=== PATIENT | male | born 1955 | race Hispanic/Latino ===

== ENCOUNTER 2020-03-09 10:56 | Inpatient (IN) | payer BC, OTHER ==
[2020-03-09] VITALS (11 sets, daily range): BP systolic 105–128; BP diastolic 68–75
[~2020-03-09] VITALS: Ht 170.2 cm; Wt 67.6 kg
[2020-03-09 11:23] LABS: BASOPHILS % (AUTO) 0.3 % (0.0-5.0); EOSINOPHILS % (AUTO) 1.4 % (0.0-8.0); HEMATOCRIT 49.1 % (42-54); LYMPHOCYTES % (AUTO) 6.5 % (21.0-51.0); MEAN CORPUSCULAR HEMOGLOBIN 27.7 pg (27.0-33.0); MEAN CORPUSCULAR HGB CONC 33.4 g/dL (32.0-36.0); MEAN CORPUSCULAR VOLUME 82.8 fL (79-99); MONOCYTES % (AUTO) 7.9 % (3.0-13.0); NEUTROPHILS % (AUTO) 83.6 % (40.0-77.0); PLATELET COUNT (AUTO) 195 K/uL (130-400); RED BLOOD CELL COUNT(AUTO) 5.93 MIL/uL (4.50-6.20); RED CELL DISTRIBUTION WIDTH 12.7 % (11.0-15.5); WHITE BLOOD COUNT (AUTO) 9.3 K/uL (4.8-10.8)
[2020-03-09 11:40] LABS: CREATININE 1.5 mg/dL (0.5-1.5); POTASSIUM 3.8 mmol/L (3.5-5.1)
[2020-03-09] MEDS ORDERED: ONDANSETRON HCL 4 MG/2 ML VIAL ONE ×2 (11:40→15:31)
[2020-03-09] MEDS ORDERED: KETOROLAC TROMETHAMINE 30MG/ML ONE (11:40)
[2020-03-09 11:43] LABS: ALBUMIN 3.5 g/dL (3.5-5.0); BILIRUBIN,TOTAL 1.9 mg/dL (0.2-1.0); TOTAL PROTEIN, SERUM 7.6 g/dL (6.0-8.3)
[2020-03-09] MEDS ORDERED: SODIUM CHLORIDE 0.9% 1000ML 1,000 ML IV ONE (13:27)
[2020-03-09] MEDS ORDERED: ZOSYN 3.375GM+NS 50ML 50 ML IV ONE (13:27)
[2020-03-09 14:06] LABS: APPEARANCE,URINE SL CLOUDY (CLEAR); BILIRUBIN,URINE SMALL (NEGATIVE); COLOR,URINE ORANGE (YELLOW); GLUCOSE, URINE (UA) NEGATIVE (NEGATIVE); KETONES,URINE 5 mg/dL (NEGATIVE); LEUKOCYTE ESTERASE ,URINE NEGATIVE (NEGATIVE); NITRATE,URINE NEGATIVE (NEGATIVE); OCCULT BLOOD,URINE NEGATIVE (NEGATIVE); PH,URINE 5.5 (5.0-8.0); PROTEIN,URINE 30 mg/dL (NEGATIVE)
[2020-03-09 14:20] LABS: BACTERIA,URINE Rare /HPF (None Seen); MUCUS,URINE Moderate LPF (None Seen); RBC,URINE 0-1 /HPF (0-1); SQUAMOUS EPITHELIAL CELL,UR Rare /HPF (0-2)
[2020-03-09] MEDS ORDERED: ZOSYN 3.375GM +NS 50ML IV SCH (15:00)
[2020-03-09] MEDS ORDERED: ACETAMINOPHEN 650 MG SUPPOSITORY RC PRN (15:00)
[2020-03-09] MEDS ORDERED: LACTATED RINGERS 1000ML 1,000 ML IV SCH (15:00)
[2020-03-09] MEDS ORDERED: HYDRALAZINE HCL 20 MG/ML VIAL IV PRN (15:00)
[2020-03-09] MEDS ORDERED: NOREPINEPHRINE 4MG/NS 250ML 250 ML IV PRN (15:00)
[2020-03-09] MEDS ORDERED: ONDANSETRON HCL 4 MG/2 ML VIAL IVP PRN (15:00)
[2020-03-09] MEDS ORDERED: ALBUTEROL INHALER 90MCG/INH IH PRN (15:00)
[2020-03-09] MEDS ORDERED: HYDROMORPHONE 1 MG/1 ML AMP IVP PRN (15:00)
[2020-03-09] MEDS ORDERED: SUCCINYLCHOLINE CHLORIDE 20 MG/ML 10 ML VIAL ONE (15:30)
[2020-03-09] MEDS ORDERED: LIDOCAINE PF 2% 5ML ABBOJECT ONE (15:30)
[2020-03-09] MEDS ORDERED: HYDROMORPHONE HCL 0.5 MG/0.5 ML ML IVP PRN (15:30)
[2020-03-09] MEDS ORDERED: PROPOFOL 10 MG/ML 20ML VIAL IV ONE (15:31)
[2020-03-09] MEDS ORDERED: ROCURONIUM 10MG/1ML SYR 10 MG/ML ML ONE (15:31)
[2020-03-09] MEDS ORDERED: MIDAZOLAM HCL 1 MG/ML 2ML VIAL ONE (15:31)
[2020-03-09] MEDS ORDERED: FENTANYL CITRATE PF 50 MCG/1 ML 2ML VIAL ONE (15:32)
[2020-03-09] MEDS ORDERED: EPHEDRINE SULFATE 50 MG/ML AMPULE ONE (15:42)
[2020-03-09] MEDS ORDERED: ZOSYN 3.375GM+NS 50ML 50 ML IV SCH ×2 (16:00→21:00)
[2020-03-09] MEDS ORDERED: BUPIVACAINE/PF 0.5% 30ML VIAL ONE (16:12)
[2020-03-09] MEDS ORDERED: NEOSTIGMINE 5MG/5ML SYR IV ONE (16:17)
[2020-03-09] MEDS ORDERED: GLYCOPYRROLATE 1 MG/5 ML SYRINGE ONE (16:17)
[2020-03-09] MEDS ORDERED: MORPHINE SULFATE 4 MG/1ML SYG IV PRN (16:30)
[2020-03-09] MEDS ORDERED: MORPHINE SULFATE 2 MG/ML 1ML SYG IV PRN (16:30)
[2020-03-09] MEDS ORDERED: HYDROCODONE/ACETAMINOPHEN 5/325 MG TAB PO PRN (16:30)
[2020-03-09] MEDS: LACTATED RINGERS 1000ML 1,000 ML IV SCH (16:42)
[2020-03-09] MEDS: FLUCONAZOLE 400 MG/NS 200 ML 200 ML IV SCH (22:04)
[2020-03-09 22:18] LABS: CREATINE KINASE, TOTAL 63 U/L (21-232); MYOGLOBIN 132 ng/mL (10-92); TROPONIN I < 0.04 ng/mL (0.00-0.06)
[2020-03-10] MEDS: LACTATED RINGERS 1000ML 1,000 ML IV SCH ×4 (00:06→16:49)
[2020-03-10] MEDS: ZOSYN 3.375GM+NS 50ML 50 ML IV SCH ×4 (00:06→21:07)
[2020-03-10 00:07] VITALS: BP 93/58
[2020-03-10 03:34] LABS: BASOPHILS % (AUTO) 0.3 % (0.0-5.0); EOSINOPHILS % (AUTO) 2.2 % (0.0-8.0); HEMATOCRIT 41.8 % (42-54); LYMPHOCYTES % (AUTO) 5.9 % (21.0-51.0); MEAN CORPUSCULAR HEMOGLOBIN 27.6 pg (27.0-33.0); MEAN CORPUSCULAR HGB CONC 33.3 g/dL (32.0-36.0); MEAN CORPUSCULAR VOLUME 83.1 fL (79-99); MONOCYTES % (AUTO) 3.9 % (3.0-13.0); NEUTROPHILS % (AUTO) 87.3 % (40.0-77.0); PLATELET COUNT (AUTO) 193 K/uL (130-400); RED BLOOD CELL COUNT(AUTO) 5.03 MIL/uL (4.50-6.20); RED CELL DISTRIBUTION WIDTH 13.2 % (11.0-15.5)
[2020-03-10 03:47] VITALS: BP 91/64
[2020-03-10 03:55] LABS: CARBON DIOXIDE 24 mmol/L (21-32); CHLORIDE 105 mmol/L (101-111); CREATINE KINASE, TOTAL 68 U/L (21-232); CREATININE 1.7 mg/dL (0.5-1.5); GLOMERULAR FILTR. RATE CALC 43 mL/min (>60); GLUCOSE,RANDOM 165 mg/dL (70-105); MYOGLOBIN 123 ng/mL (10-92); PHOSPHORUS 2.3 mg/dL (2.5-4.9); POTASSIUM 3.9 mmol/L (3.5-5.1); SODIUM SERUM 138 mmol/L (136-145); TROPONIN I < 0.04 ng/mL (0.00-0.06); UREA NITROGEN, BLOOD 18 mg/dL (7-18)
[2020-03-10] MEDS ORDERED: MAGNESIUM 2GM PREMIX 50ML 50 ML IV PRN (08:15)
[2020-03-10] MEDS ORDERED: POTASSIUM CHLORIDE 10MEQ/100ML 100 ML IV PRN (08:15)
[2020-03-10] MEDS ORDERED: LIDOCAINE HCL-MPF 1% 2ML VIAL IV PRN (08:15)
[2020-03-10] MEDS ORDERED: FLUCONAZOLE 400 MG/NS 200 ML IV SCH (09:00)
[2020-03-10] MEDS ORDERED: FLUCONAZOLE 400 MG/NS 200 ML 200 ML IV SCH (09:00)
[2020-03-10] MEDS: FLUCONAZOLE 400 MG/NS 200 ML 200 ML IV SCH (09:44)
[2020-03-10 09:50] VITALS: BP 92/56
[2020-03-10 11:00] VITALS: BP 99/60
[2020-03-10 16:42] VITALS: BP 122/75
[2020-03-10 20:00] VITALS: BP 113/72
[2020-03-11] VITALS (7 sets, daily range): BP systolic 101–154; BP diastolic 66–92
[2020-03-11 05:22] LABS: HEMATOCRIT 37.4 % (42-54); MEAN CORPUSCULAR HEMOGLOBIN 27.5 pg (27.0-33.0); MEAN CORPUSCULAR HGB CONC 32.6 g/dL (32.0-36.0); MEAN CORPUSCULAR VOLUME 84.2 fL (79-99); RED BLOOD CELL COUNT(AUTO) 4.44 MIL/uL (4.50-6.20); RED CELL DISTRIBUTION WIDTH 13.5 % (11.0-15.5); WHITE BLOOD COUNT (AUTO) 9.9 K/uL (4.8-10.8)
[2020-03-11] MEDS: ZOSYN 3.375GM+NS 50ML 50 ML IV SCH ×3 (05:40→21:11)
[2020-03-11] MEDS: LACTATED RINGERS 1000ML 1,000 ML IV SCH ×2 (05:41→21:10)
[2020-03-11 05:44] LABS: CREATININE 1.2 mg/dL (0.5-1.5); MAGNESIUM 2.3 mg/dL (1.80-2.40); POTASSIUM 4.6 mmol/L (3.5-5.1)
--- NOTE | 2020-03-11 08:00 | NUR ---
INTEGUMENTARY PT HAS 2 MIDLINE INCISION WITH ANNITA DRAIN, AND ONE INCISION TO THE LEFT TOTAL OF 3 INCISIONS, DRESSING DRY AND INTACT.
[2020-03-11] MEDS: FLUCONAZOLE 400 MG/NS 200 ML 200 ML IV SCH (09:10)
--- NOTE | 2020-03-11 17:36 | NUR ---
DC PLAN VISITED WITH PATIENT. PATIENT LIVES WITH SPOUSE. INDEPENDENT ABLE TO PERFORM ADL'S. PATIENT HAS NO SERVICES OR DME'S. FEELS SAFE TO RETURN HOME. Addendum: 03/11/20 at 1737 by CHANEL GRANT RN CM Amended: Links added.
[2020-03-12 04:01] VITALS: BP 116/67
[2020-03-12] MEDS: ZOSYN 3.375GM+NS 50ML 50 ML IV SCH ×3 (05:24→21:05)
[2020-03-12 05:51] LABS: HEMATOCRIT 41.1 % (42-54); MEAN CORPUSCULAR HEMOGLOBIN 27.3 pg (27.0-33.0); MEAN CORPUSCULAR HGB CONC 32.1 g/dL (32.0-36.0); MEAN CORPUSCULAR VOLUME 84.9 fL (79-99); RED BLOOD CELL COUNT(AUTO) 4.84 MIL/uL (4.50-6.20); RED CELL DISTRIBUTION WIDTH 13.8 % (11.0-15.5); WHITE BLOOD COUNT (AUTO) 9.5 K/uL (4.8-10.8)
[2020-03-12 06:13] LABS: CREATININE 1.2 mg/dL (0.5-1.5); POTASSIUM 4.1 mmol/L (3.5-5.1)
[2020-03-12 08:48] VITALS: BP 134/74
[2020-03-12] MEDS: FLUCONAZOLE 400 MG/NS 200 ML 200 ML IV SCH (08:49)
[2020-03-12 12:00] VITALS: BP 162/92
[2020-03-12] MEDS: LACTATED RINGERS 1000ML 1,000 ML IV SCH (14:51)
[2020-03-12 16:40] VITALS: BP 158/99
--- NOTE | 2020-03-12 19:09 | NUR ---
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 WILL CONTINUE TO MONITOR LR AT [facility].
[2020-03-12 19:48] VITALS: BP 139/80
[2020-03-12] MEDS ORDERED: ASPI-1443 PO (20:30)
[2020-03-12] MEDS ORDERED: LOSA25TA41 PO (20:30)
[2020-03-12] MEDS ORDERED: METO-408 PO (20:30)
[2020-03-12] MEDS ORDERED: ATOR40TA71 PO (20:30)
--- NOTE | 2020-03-12 20:35 | NUR ---
Had patient's take the medication at patient's bedside table that he was taking while here. Informed him that I would call the doctor and get orders for them to be resumed. Patient and verbalized understanding. Esvin CHANG paged via answering service, answered within a few seconds, informed of patient taking his own medication since he has been here. Informed her had already updated his medication on the computer. Orders to resume the medication from home.
[2020-03-12] MEDS: ATORVASTATIN CALCIUM 40 MG TABLET PO SCH (21:04)
[2020-03-12 23:59] VITALS: BP 109/69
[2020-03-13 03:50] VITALS: BP 112/72
[2020-03-13] MEDS: ZOSYN 3.375GM+NS 50ML 50 ML IV SCH ×3 (05:05→21:15)
[2020-03-13 05:52] LABS: HEMATOCRIT 40.1 % (42-54); MEAN CORPUSCULAR HEMOGLOBIN 27.3 pg (27.0-33.0); MEAN CORPUSCULAR HGB CONC 32.4 g/dL (32.0-36.0); MEAN CORPUSCULAR VOLUME 84.1 fL (79-99); RED BLOOD CELL COUNT(AUTO) 4.77 MIL/uL (4.50-6.20); RED CELL DISTRIBUTION WIDTH 13.6 % (11.0-15.5); WHITE BLOOD COUNT (AUTO) 8.7 K/uL (4.8-10.8)
[2020-03-13 06:13] LABS: CREATININE 1.3 mg/dL (0.5-1.5); POTASSIUM 3.4 mmol/L (3.5-5.1)
[2020-03-13 08:03] VITALS: BP 124/79
[2020-03-13] MEDS ORDERED: NON-FORMULARY MEDICATION 1 EACH (Losartan Potassium 25 MG) PO SCH (09:00)
[2020-03-13] MEDS ORDERED: NON-FORMULARY MEDICATION 1 EACH (Metoprolol Succinate 25 MG) PO SCH (09:00)
[2020-03-13] MEDS: METOPROLOL SUCCINATE 50 MG TAB.SR.24H PO SCH (11:25)
[2020-03-13] MEDS: FLUCONAZOLE 400 MG/NS 200 ML 200 ML IV SCH (11:25)
[2020-03-13] MEDS: LOSARTAN 50 MG TABLET PO SCH (11:25)
[2020-03-13] MEDS: ASPIRIN 81 MG EC TAB PO SCH (11:25)
[2020-03-13 11:43] VITALS: BP 131/91
[2020-03-13 16:00] VITALS: BP 140/88
[2020-03-13 20:47] VITALS: BP 125/82
[2020-03-13] MEDS: ATORVASTATIN CALCIUM 40 MG TABLET PO SCH (21:15)
[2020-03-14] VITALS (7 sets, daily range): BP systolic 119–157; BP diastolic 79–95
[2020-03-14] MEDS: ZOSYN 3.375GM+NS 50ML 50 ML IV SCH ×3 (05:14→21:16)
[2020-03-14 06:00] LABS: ALBUMIN 2.4 g/dL (3.5-5.0); BILIRUBIN,TOTAL 0.9 mg/dL (0.2-1.0); CREATININE 1.2 mg/dL (0.5-1.5); POTASSIUM 3.8 mmol/L (3.5-5.1); TOTAL PROTEIN, SERUM 7.2 g/dL (6.0-8.3)
[2020-03-14] MEDS: FLUCONAZOLE 400 MG/NS 200 ML 200 ML IV SCH (10:36)
[2020-03-14] MEDS: LOSARTAN 50 MG TABLET PO SCH (10:37)
[2020-03-14] MEDS: ASPIRIN 81 MG EC TAB PO SCH (10:37)
[2020-03-14] MEDS: METOPROLOL SUCCINATE 50 MG TAB.SR.24H PO SCH (10:37)
--- NOTE | 2020-03-14 14:30 | NUR ---
ANNITA DRAIN ANNITA DRAIN REMOVED, INTACT [address] NOHELIA MANLEY.
[2020-03-14] MEDS: ATORVASTATIN CALCIUM 40 MG TABLET PO SCH (21:16)
[2020-03-14] MEDS ORDERED: AMOX-426 PO (22:16)
[2020-03-15 04:01] LABS: CREATININE 1.2 mg/dL (0.5-1.5); POTASSIUM 3.7 mmol/L (3.5-5.1)
[2020-03-15 04:49] VITALS: BP 125/78
[2020-03-15] MEDS: ZOSYN 3.375GM+NS 50ML 50 ML IV SCH (04:57)
[2020-03-15 08:06] VITALS: BP 114/69
[2020-03-15] MEDS: FLUCONAZOLE 400 MG/NS 200 ML 200 ML IV SCH (09:00)
[2020-03-15] MEDS: ASPIRIN 81 MG EC TAB PO SCH (09:16)
[2020-03-15] MEDS: LOSARTAN 50 MG TABLET PO SCH (09:17)
[2020-03-15] MEDS: METOPROLOL SUCCINATE 50 MG TAB.SR.24H PO SCH (09:17)
--- NOTE | 2020-03-15 10:18 | NUR ---
DISCHARGE PATIENT GIVEN DISCHARGE INSTRUCTIONS AND VERBALIZED UNDERSTANDING, INSTRUCTED ON FOLLOW-UP APPOINTMENT ,NEW MEDICATION AMOXICILLIN/CLAVULANIC ACID ( AUGMENTIN0 500 MG PO BID ) AND EDUCATION ON S/P LAP CARE, NO QUESTIONS OR CONCERN AT THIS TIME. TELEMETRY NOTIFIED AND MONITOR REMOVED. IV REMOVED WITH CATHETER INTACT AND SITE DRESSED, CALL FOR RIDE HOME.
--- NOTE | 2020-03-16 09:55 | NUR ---
TRANSITIONAL CARE - POST-DISCHARGE NOTE Spoke to patient at number on file. As per Mr Paz, he is doing well. He states he is taking his discharge medications along with his home medications as ordered. Mr Paz, is aware he is to follow up with Gaviota Wang and Jason, and is aware of appointment time and date. Mr Paz denies any SOB, N/V/D, abdominal pain, fever/chills, weakness or chest pain.
== END 2020-03-15 11:50 | disposition home or self-care (01) | DRG 340 ==
LOC: EDH 10:56 → OBSVTOIN 15:26 → EDHIP 15:26 → 3DH 17:49
PROVIDERS: ADMIT Internal Medicine; ATTEND Internal Medicine
PROC: 0DTJ4ZZ Resection of Appendix, Percutaneous Endoscopic Approach (ICD-10-PCS; principal; 2020-03-09 15:40)
DX: K35.33 Acute appendicitis with perforation, localized peritonitis, and gangrene, with abscess (principal); I25.10 Atherosclerotic heart disease of native coronary artery without angina pectoris; D3A.020 Benign carcinoid tumor of the appendix; I10 Essential (primary) hypertension; E78.5 Hyperlipidemia, unspecified; Z20.828 Contact with and (suspected) exposure to other viral communicable diseases; Z95.5 Presence of coronary angioplasty implant and graft; Z79.82 Long term (current) use of aspirin
CPT/HCPCS: 36415; 74176; 80048; 80053; 81001; 82378; 82550; 83735; 83874; 84100; 84145; 84484; 85025; 85027; 86316; 86850; 86900; 86901; 87040; 87070; 87076; 87077; 87088; 87186; 87426; 93005; A4344; G0378; J0330; J1450; J1885; J2001; J2250; J2405; J2543; J2704; J2710; J3010; J3475; J3490; J7030; J7120; U0003

== ENCOUNTER → 2021-10-23 | Outpatient (CLI) | payer OTHER ==
[~2021-10-23] MED LIST: AMOX-426 PO; ASPI-1443 PO; ATOR40TA71 PO; LOSA25TA41 PO; METO-408 PO
[2021-10-23 12:42] LABS: CHOLESTEROL 110 mg/dL (<200); HDL CHOLESTEROL 38 mg/dL (29-71); LDL DIRECT 57 mg/dL (0-99); TRIGLYCERIDES 107 mg/dL (30-200)
== END | disposition home or self-care (01) ==
LOC: LAB 09:46
PROVIDERS: ATTEND Internal Medicine Cardiovascular Disease
DX: E78.5 Hyperlipidemia, unspecified (principal)
CPT/HCPCS: 36415; 80061